=== PATIENT | female | born 1945 | race Caucasian/White ===

== ENCOUNTER 2018-05-12 19:05 | Emergency (ER) | payer OTHER ==
[~2018-05-12] VITALS: Ht 167.6 cm; Wt 94.3 kg
--- NOTE | ~2018-05-12 | EKG ---
[place], [place] ELECTROCARDIOGRAM REPORT NAME: SALIMA MURO V UNIT #: [id number] ROOM: DOCTOR: STU DRAFT REPORT BIRTHDATE: [birth year] [facility] Test Date: 2018-05-12 Test Time: 19:25:34 Pat Name: SALIMA MURO Department: Room: Gender: F Machine Technician: SS RESP : 1945 Requested By: ALIN HARO Order Number: [id number] Reading MD: Odell Ashley MD Measurements Intervals [place] Rate: 106 P: 50 [place]: 176 QRS: -52 QRSD: 92 T: 86 QT: 336 QTc: 447 Interpretive Statements Sinus tachycardia Ventricular bigeminy Left anterior fascicular block Abnormal R-wave progression, late transition LVH by voltage ST elevation, consider inferior injury Electronically Signed On 05-13-2018 11:07:11 PDT by Odell Ashley MD CM:EKGRPT:ELECTROCARDIOGRAM REPORT 24 1107 ALIN SMITH DRAFT REPORT ALIN HARO DO
[~2018-05-12 19:05] MED LIST: ACTOPLUS MET 501 TAB PO; ALBUTEROL2.5 MG/0.5 INH; AMOXICILLIN250 MG PO; AMOXICILLIN500 MG PO; CALCIUM + VITA1 EAC2 PO; CARAFATE1 GM PO; DELTASONE10 MG; DICLOFENAC POTA50 MG PO; IBUPROFEN600 MG PO; K-DUR 2020 MEQ PO; KLONOPIN1 MG PO; LEVAQUIN500 M2 PO; LEVOFLOXACIN500 MG PO; NEURONTIN300 MG PO; OMEPRAZOLE DR20 MG PO; OYSTER CALCIUM/1 TA1 PO; PEPCID20 MG PO; PERCOCET 325 MG1 TA6 PO; PHENERGAN25 M1 PO; PRAVACHOL20 MG PO; REQUIP1 MG PO; REQUIP2 M2 PO; RESTORIL30 MG PO; SYMBICORT1 AE1 INH; SYNTHROID0.025 MG PO; TORADOL10 MG PO; TUSSI-ORGANID3840 M1 PO; ULTRAM50 MG PO; VICODIN 5/500 505 MG PO; VICODIN ES 7501 TAB PO; VITAMIN D50000 I2 PO; VITAMIN D50000 I3 PO; VOLTAREN GEL1% TP; ZOCOR20 MG PO; ZOFRAN ODT8 MG PO
[2018-05-12 19:09] VITALS: BP 121/83
[2018-05-12 19:53] LABS: BASO % 0.2 % (0.0-1.0); EOS # 0.1 10*3/uL (0.0-0.4); EOS % 0.9 % (1.0-4.0); HEMATOCRIT 38.4 % (37.0-47.0); LYMPH % 12.9 % (27.0-41.0); MEAN CELL VOLUME 89.9 fl (81.0-99.0); MEAN CORPUSCULAR HGB 30.4 pg (27.0-31.0); MEAN CORPUSCULAR HGB CONC 33.9 g/dl (33.0-37.0); MEAN PLATELET VOLUME 10.4 fl (9.6-12.3); MONO % 6.5 % (3.0-9.0); NEUT % 79.2 % (47.0-73.0); PLATELET COUNT AUTOMATED 332 10*3/uL (130-400); RED BLOOD COUNT 4.27 10*6/uL (4.10-5.10); RED CELL DISTRI WIDTH 13.6 % (0-14.5); WHITE BLOOD COUNT 15.2 10*3/uL (4.8-10.8)
[2018-05-12 20:09] LABS: ALBUMIN 3.4 gm/dl (3.1-4.5); ALKALINE PHOSPHATASE 82 U/L (45-117); BUN 12 mg/dl (7-24); CHLORIDE 109 mmol/L (98-107); CREATININE 1.03 mg/dL (0.55-1.02); SGOT/AST 13 IU/L (3-35); SGPT/ALT 22 U/L (12-78); SODIUM 141 mmol/L (136-145); TOTAL PROTEIN 7.2 gm/dL (6.4-8.2)
[2018-05-12 20:11] LABS: TROPONIN I < 0.015 ng/ml (<0.045)
[2018-05-12 21:22] LABS: BILIRUBIN NEGATIVE (NEGATIVE); BLOOD TRACE-INTACT (NEGATIVE); CLARITY CLEAR (CLEAR); COLOR YELLOW (YELLOW); GLUCOSE NEGATIVE (NEGATIVE); KETONE NEGATIVE (NEGATIVE); LEUKO ESTERASE NEGATIVE (NEGATIVE); NITRITE NEGATIVE (NEGATIVE); SPECIFIC GRAVITY 1.015 (1.005-1.030); UROBILINOGEN 0.2 E.U./dl (0.2-1.0)
== END 2018-05-12 23:15 | disposition home or self-care (01) ==
LOC: ED 19:05
PROVIDERS: Student in an Organized Health Care Education/Training Program
DX: R11.2 Nausea with vomiting, unspecified (principal); R19.7 Diarrhea, unspecified; R05 Cough; R06.02 Shortness of breath; R61 Generalized hyperhidrosis; K21.9 Gastro-esophageal reflux disease without esophagitis; E78.5 Hyperlipidemia, unspecified; J44.9 Chronic obstructive pulmonary disease, unspecified; E03.9 Hypothyroidism, unspecified; E11.9 Type 2 diabetes mellitus without complications; F17.200 Nicotine dependence, unspecified, uncomplicated; Z79.899 Other long term (current) drug therapy

== ENCOUNTER → 2018-09-20 | Outpatient (CLI) | payer OTHER | END | disposition home or self-care (01) | LOC: CT 09:59 | DX: N28.89 Other specified disorders of kidney and ureter (principal); J44.9 Chronic obstructive pulmonary disease, unspecified; R91.1 Solitary pulmonary nodule ==

== ENCOUNTER → 2018-10-14 | Outpatient (CLI) | payer OTHER ==
[2018-10-14 11:21] LABS: BASO # 0.1 10*3/uL (0.0-0.1); BASO % 0.5 % (0.0-1.0); EOS # 0.2 10*3/uL (0.0-0.4); EOS % 1.7 % (1.0-4.0); HEMATOCRIT 39.1 % (37.0-47.0); HEMOGLOBIN 12.9 g/dl (12.0-16.0); LYMPH # 2.9 10*3/uL (1.3-4.4); LYMPH % 29.3 % (27.0-41.0); MEAN CELL VOLUME 92.4 fl (81.0-99.0); MEAN CORPUSCULAR HGB 30.5 pg (27.0-31.0); MONO % 9.8 % (3.0-9.0); NEUT # 5.7 10*3/uL (2.3-7.9); PLATELET COUNT AUTOMATED 317 10*3/uL (130-400); RED BLOOD COUNT 4.23 10*6/uL (4.10-5.10); RED CELL DISTRI WIDTH 14.6 % (0-14.5); WHITE BLOOD COUNT 9.9 10*3/uL (4.8-10.8)
== END | disposition home or self-care (01) ==
LOC: LAB 10:49
PROVIDERS: Internal Medicine Critical Care Medicine
DX: R91.1 Solitary pulmonary nodule (principal); Z79.899 Other long term (current) drug therapy

== ENCOUNTER → 2018-11-04 | Outpatient (CLI) | payer OTHER | END | disposition home or self-care (01) | LOC: MAMMO 02:43 | DX: Z12.31 Encounter for screening mammogram for malignant neoplasm of breast (principal) ==

== ENCOUNTER → 2019-09-20 | Outpatient (CLI) | payer OTHER ==
[2019-09-20 12:55] LABS: ALBUMIN 3.6 gm/dl (3.1-4.5); POTASSIUM 4.3 mmol/L (3.5-5.1)
[2019-09-20 13:06] LABS: CREATININE 1.14 mg/dL (0.55-1.02); TOTAL PROTEIN 7.5 gm/dL (6.4-8.2)
[2019-09-21 10:09] LABS: CREATININE,URINE 188.5 mg/dL (Not Estab.)
== END | disposition home or self-care (01) ==
LOC: LAB 11:28
PROVIDERS: Internal Medicine
DX: E11.42 Type 2 diabetes mellitus with diabetic polyneuropathy (principal); E03.8 Other specified hypothyroidism; E53.8 Deficiency of other specified B group vitamins

== ENCOUNTER 2020-01-28 22:00 | Emergency (ER) | payer OTHER ==
[~2020-01-28] VITALS: Ht 167.6 cm; Wt 92.1 kg
[2020-01-28 22:10] VITALS: BP 135/74
[2020-01-28 23:46] LABS: BASO % 0.3 % (0.0-1.0); HEMATOCRIT 37.3 % (37.0-47.0); LYMPH # 3.8 10*3/uL (1.3-4.4); LYMPH % 39.7 % (27.0-41.0); MEAN CELL VOLUME 89.9 fl (81.0-99.0); MEAN CORPUSCULAR HGB 29.2 pg (27.0-31.0); MEAN CORPUSCULAR HGB CONC 32.4 g/dl (33.0-37.0); MONO # 1.1 10*3/uL (0.1-1.0); MONO % 11.3 % (3.0-9.0); NEUT # 4.6 10*3/uL (2.3-7.9); NEUT % 48.4 % (47.0-73.0); PLATELET COUNT AUTOMATED 349 10*3/uL (130-400); RED BLOOD COUNT 4.15 10*6/uL (4.10-5.10); RED CELL DISTRI WIDTH 13.3 % (0-14.5); WHITE BLOOD COUNT 9.5 10*3/uL (4.8-10.8)
[2020-01-29] LABS: ALBUMIN 3.4 gm/dl (3.1-4.5); CREATININE 1.09 mg/dL (0.55-1.02); POTASSIUM 4.2 mmol/L (3.5-5.1); TOTAL PROTEIN 7.3 gm/dL (6.4-8.2)
== END 2020-01-29 01:59 | disposition home or self-care (01) ==
LOC: ED 22:00
PROVIDERS: Emergency Medicine
DX: I71.4 Abdominal aortic aneurysm, without rupture (principal); Z79.899 Other long term (current) drug therapy

== ENCOUNTER → 2020-02-17 | Outpatient (CLI) | payer OTHER ==
[2020-02-17 13:24] LABS: HEMATOCRIT 37.1 % (37.0-47.0); MEAN CELL VOLUME 88.1 fl (81.0-99.0); MEAN CORPUSCULAR HGB CONC 31.8 g/dl (33.0-37.0); MEAN PLATELET VOLUME 10.3 fl (9.6-12.3); RED BLOOD COUNT 4.21 10*6/uL (4.10-5.10); RED CELL DISTRI WIDTH 13.5 % (0-14.5); WHITE BLOOD COUNT 7.6 10*3/uL (4.8-10.8)
[2020-02-17 13:51] LABS: ALBUMIN 3.3 gm/dl (3.1-4.5); CREATININE 1.11 mg/dL (0.55-1.02); POTASSIUM 4.1 mmol/L (3.5-5.1); TOTAL PROTEIN 7.1 gm/dL (6.4-8.2)
[2020-02-17 13:58] LABS: THYROID STIM HORMONE (HS) 4.57 uIU/ml (0.358-4.75)
[2020-02-17 14:09] LABS: VITAMIN D, 25-HYDROXY 30.1 ng/mL (30-100)
== END | disposition home or self-care (01) ==
LOC: LAB 12:29
PROVIDERS: Family Medicine
DX: E11.9 Type 2 diabetes mellitus without complications (principal); R53.83 Other fatigue; E78.00 Pure hypercholesterolemia, unspecified

== ENCOUNTER → 2020-03-21 | Outpatient (CLI) | payer OTHER | END | disposition home or self-care (01) | LOC: MRI 14:51 | DX: Z02.9 Encounter for administrative examinations, unspecified (principal); M54.16 Radiculopathy, lumbar region; M48.062 Spinal stenosis, lumbar region with neurogenic claudication; Z79.899 Other long term (current) drug therapy ==

== ENCOUNTER 2020-03-27 15:11 | Inpatient (IN) | payer OTHER ==
[~2020-03-27] VITALS: Ht 168 cm; Wt 99.0 kg
[~2020-03-27 15:11] MED LIST changes: -REQUIP2 M2 PO; +ROPINIROLE HYDRO2 M1 PO; -VOLTAREN GEL1% TP; +VOLTAREN100 GM T
[2020-03-27 15:33] VITALS: BP 151/82
[2020-03-27 16:09] LABS: BASO % 0.2 % (0.0-1.0); LYMPH # 3.2 10*3/uL (1.3-4.4); LYMPH % 33.5 % (27.0-41.0); MEAN CELL VOLUME 87.3 fl (81.0-99.0); MEAN CORPUSCULAR HGB 26.9 pg (27.0-31.0); MEAN CORPUSCULAR HGB CONC 30.9 g/dl (33.0-37.0); MEAN PLATELET VOLUME 10.4 fl (9.6-12.3); MONO % 10.7 % (3.0-9.0); NEUT # 5.2 10*3/uL (2.3-7.9); NEUT % 54.7 % (47.0-73.0); PLATELET COUNT AUTOMATED 405 10*3/uL (130-400); RED BLOOD COUNT 4.01 10*6/uL (4.10-5.10); RED CELL DISTRI WIDTH 14.5 % (0-14.5); WHITE BLOOD COUNT 9.5 10*3/uL (4.8-10.8)
[2020-03-27 16:21] LABS: ACT PARTIAL THROMBO TIME 24.2 SECONDS (20.0-32.1); INTERNATIONAL NORM RATIO 0.9 (2.0-3.5)
[2020-03-27 16:23] LABS: ALBUMIN 3.4 gm/dl (3.1-4.5); ALKALINE PHOSPHATASE 146 U/L (45-117); BUN 14 mg/dl (7-24); CHLORIDE 105 mmol/L (98-107); CREATININE 1.17 mg/dL (0.55-1.02); LIPASE 121 U/L (73-393); POTASSIUM 4.4 mmol/L (3.5-5.1); SGOT/AST 27 IU/L (3-35); SGPT/ALT 56 U/L (12-78); SODIUM 134 mmol/L (136-145); TOTAL PROTEIN 7.3 gm/dL (6.4-8.2)
[2020-03-27 16:28] LABS: TROPONIN I < 0.015 ng/ml (<0.045)
[2020-03-27 16:41] VITALS: BP 142/82
[2020-03-27 17:22] VITALS: BP 152/66
[2020-03-27 17:34] VITALS: BP 153/66
[2020-03-27 18:32] VITALS: BP 130/80
[2020-03-27] MEDS ORDERED: NEURONTIN300 MG PO (18:38)
[2020-03-27] MEDS ORDERED: DOCUSATE SOD100 MG PO (18:40)
[2020-03-27] MEDS ORDERED: NEXIUM40 MG PO (18:43)
[2020-03-27] MEDS ORDERED: SINGULAIR10 M1 PO (18:44)
[2020-03-27] MEDS ORDERED: WELLBUTRIN SR150 MG PO (18:44)
[2020-03-27] MEDS ORDERED: LIDODERM1 EACH T (18:44)
[2020-03-27] MEDS ORDERED: METFORMIN HYD1000 MG PO (18:45)
[2020-03-27] MEDS ORDERED: GLIMEPIRIDE2 MG PO (18:45)
[2020-03-28] VITALS: BP 127/48
[2020-03-28 06:48] LABS: BASO % 0.2 % (0.0-1.0); HEMATOCRIT 33.7 % (37.0-47.0); LYMPH % 17.7 % (27.0-41.0); MEAN CELL VOLUME 86.6 fl (81.0-99.0); MEAN CORPUSCULAR HGB 27.2 pg (27.0-31.0); MEAN CORPUSCULAR HGB CONC 31.5 g/dl (33.0-37.0); MEAN PLATELET VOLUME 10.2 fl (9.6-12.3); MONO # 0.8 10*3/uL (0.1-1.0); MONO % 6.9 % (3.0-9.0); NEUT # 8.2 10*3/uL (2.3-7.9); NEUT % 73.9 % (47.0-73.0); PLATELET COUNT AUTOMATED 388 10*3/uL (130-400); RED BLOOD COUNT 3.89 10*6/uL (4.10-5.10); RED CELL DISTRI WIDTH 14.6 % (0-14.5); WHITE BLOOD COUNT 11.2 10*3/uL (4.8-10.8)
[2020-03-28 07:25] LABS: ALBUMIN 3.2 gm/dl (3.1-4.5); FREE T4 0.99 ng/dl (0.76-1.46); POTASSIUM 4.3 mmol/L (3.5-5.1)
[2020-03-28 07:33] LABS: CREATININE 1.15 mg/dL (0.55-1.02)
[2020-03-28 07:38] LABS: ACT PARTIAL THROMBO TIME 24.2 SECONDS (20.0-32.1); THYROID STIM HORMONE (HS) 0.671 uIU/ml (0.358-4.75)
[2020-03-28 08:00] VITALS: BP 135/61
[2020-03-28 08:02] LABS: VITAMIN D, 25-HYDROXY 62.1 ng/mL (30-100)
[2020-03-28 12:00] VITALS: BP 139/66
[2020-03-28 16:00] VITALS: BP 122/54
[2020-03-28 20:00] VITALS: BP 141/68
[2020-03-29 06:50] LABS: BASO % 0.2 % (0.0-1.0); HEMATOCRIT 34.4 % (37.0-47.0); LYMPH # 2.3 10*3/uL (1.3-4.4); LYMPH % 17.9 % (27.0-41.0); MEAN CELL VOLUME 87.8 fl (81.0-99.0); MEAN CORPUSCULAR HGB 27.6 pg (27.0-31.0); MEAN CORPUSCULAR HGB CONC 31.4 g/dl (33.0-37.0); MEAN PLATELET VOLUME 10.3 fl (9.6-12.3); MONO # 0.9 10*3/uL (0.1-1.0); MONO % 6.7 % (3.0-9.0); NEUT # 9.6 10*3/uL (2.3-7.9); NEUT % 74.1 % (47.0-73.0); PLATELET COUNT AUTOMATED 419 10*3/uL (130-400); RED BLOOD COUNT 3.92 10*6/uL (4.10-5.10); RED CELL DISTRI WIDTH 14.8 % (0-14.5); WHITE BLOOD COUNT 12.9 10*3/uL (4.8-10.8)
[2020-03-29 07:22] LABS: POTASSIUM 4.4 mmol/L (3.5-5.1)
[2020-03-29 07:25] LABS: CREATININE 1.21 mg/dL (0.55-1.02)
[2020-03-29 08:00] VITALS: BP 139/74
[2020-03-29 16:00] VITALS: BP 133/73
[2020-03-29 20:00] VITALS: BP 148/67
[2020-03-30] VITALS: BP 114/53
[2020-03-30 06:31] LABS: HEMATOCRIT 34.3 % (37.0-47.0); MEAN CELL VOLUME 88.2 fl (81.0-99.0); MEAN CORPUSCULAR HGB 27.5 pg (27.0-31.0); MEAN CORPUSCULAR HGB CONC 31.2 g/dl (33.0-37.0); MEAN PLATELET VOLUME 10.1 fl (9.6-12.3); PLATELET COUNT AUTOMATED 402 10*3/uL (130-400); RED BLOOD COUNT 3.89 10*6/uL (4.10-5.10); RED CELL DISTRI WIDTH 14.8 % (0-14.5); WHITE BLOOD COUNT 12.5 10*3/uL (4.8-10.8)
[2020-03-30 06:58] LABS: POTASSIUM 3.8 mmol/L (3.5-5.1)
[2020-03-30 06:59] LABS: CREATININE 1.16 mg/dL (0.55-1.02)
[2020-03-30 07:36] LABS: PLATELET SUFFICIENCY HIGH (NORMAL); TOTAL CELLS COUNTED 100 #CELLS
[2020-03-30 08:00] VITALS: BP 133/69
[2020-03-30] MEDS ORDERED: PREDNISONE10 MG PO (11:11)
[2020-03-30] MEDS ORDERED: DOXYCYCLINE100 M3 PO (11:11)
[2020-03-30] MEDS ORDERED: MUCUS RELIEF600 MG PO (11:11)
== END 2020-03-30 12:00 | disposition home or self-care (01) | DRG 190 ==
LOC: ED 15:11 → 5E 17:29 → EDHOLD 17:29 → 5E 18:17
PROVIDERS: Emergency Medicine; Hospitalist; Internal Medicine; ADMIT Family Medicine
DX: J44.0 Chronic obstructive pulmonary disease with (acute) lower respiratory infection (principal); N17.0 Acute kidney failure with tubular necrosis; R65.10 Systemic inflammatory response syndrome (SIRS) of non-infectious origin without acute organ dysfunction; E87.1 Hypo-osmolality and hyponatremia; J45.51 Severe persistent asthma with (acute) exacerbation; Z68.35 Body mass index [BMI] 35.0-35.9, adult; J44.1 Chronic obstructive pulmonary disease with (acute) exacerbation; D64.9 Anemia, unspecified; E11.65 Type 2 diabetes mellitus with hyperglycemia; R79.82 Elevated C-reactive protein (CRP); R74.8 Abnormal levels of other serum enzymes; E03.9 Hypothyroidism, unspecified; E86.0 Dehydration; F17.210 Nicotine dependence, cigarettes, uncomplicated; E11.22 Type 2 diabetes mellitus with diabetic chronic kidney disease; N18.3 Chronic kidney disease, stage 3 (moderate); D47.3 Essential (hemorrhagic) thrombocythemia; K21.9 Gastro-esophageal reflux disease without esophagitis; E78.5 Hyperlipidemia, unspecified; J20.9 Acute bronchitis, unspecified; M19.90 Unspecified osteoarthritis, unspecified site; E66.9 Obesity, unspecified; F41.1 Generalized anxiety disorder; G25.81 Restless legs syndrome; F32.9 Major depressive disorder, single episode, unspecified; I71.4 Abdominal aortic aneurysm, without rupture; D21.9 Benign neoplasm of connective and other soft tissue, unspecified; Z90.49 Acquired absence of other specified parts of digestive tract; Z90.710 Acquired absence of both cervix and uterus; Z82.49 Family history of ischemic heart disease and other diseases of the circulatory system; Z83.3 Family history of diabetes mellitus; Z83.2 Family history of diseases of the blood and blood-forming organs and certain disorders involving the immune mechanism; Z82.0 Family history of epilepsy and other diseases of the nervous system; Z80.51 Family history of malignant neoplasm of kidney; Z80.1 Family history of malignant neoplasm of trachea, bronchus and lung; Z79.899 Other long term (current) drug therapy; Z71.6 Tobacco abuse counseling

== ENCOUNTER 2020-05-07 12:11 | Emergency (ER) | payer OTHER ==
[~2020-05-07] VITALS: Wt 92.1 kg
[~2020-05-07 12:11] MED LIST changes: +DOCUSATE SOD100 MG PO; +DOXYCYCLINE100 M3 PO; +GLIMEPIRIDE2 MG PO; +LIDODERM1 EACH T; +METFORMIN HYD1000 MG PO; +MUCUS RELIEF600 MG PO; +NEXIUM40 MG PO; +PREDNISONE10 MG PO; +SINGULAIR10 M1 PO; +WELLBUTRIN SR150 MG PO
[2020-05-07 13:12] LABS: BASO % 0.2 % (0.0-1.0); HEMATOCRIT 34.7 % (37.0-47.0); LYMPH # 2.6 10*3/uL (1.3-4.4); LYMPH % 25.5 % (27.0-41.0); MEAN CELL VOLUME 85.5 fl (81.0-99.0); MEAN CORPUSCULAR HGB 26.8 pg (27.0-31.0); MEAN CORPUSCULAR HGB CONC 31.4 g/dl (33.0-37.0); MEAN PLATELET VOLUME 9.8 fl (9.6-12.3); MONO # 0.9 10*3/uL (0.1-1.0); MONO % 8.9 % (3.0-9.0); NEUT # 6.7 10*3/uL (2.3-7.9); NEUT % 65.1 % (47.0-73.0); PLATELET COUNT AUTOMATED 427 10*3/uL (130-400); RED BLOOD COUNT 4.06 10*6/uL (4.10-5.10); RED CELL DISTRI WIDTH 15.1 % (0-14.5); WHITE BLOOD COUNT 10.3 10*3/uL (4.8-10.8)
[2020-05-07 13:24] LABS: ACT PARTIAL THROMBO TIME 25.4 SECONDS (20.0-32.1)
[2020-05-07 13:28] LABS: ALBUMIN 3.8 gm/dl (3.1-4.5); ALKALINE PHOSPHATASE 93 U/L (45-117); BUN 8 mg/dl (7-24); CHLORIDE 108 mmol/L (98-107); CREATININE 1.09 mg/dL (0.55-1.02); LIPASE 56 U/L (73-393); POTASSIUM 3.8 mmol/L (3.5-5.1); SGOT/AST 27 IU/L (3-35); SGPT/ALT 43 U/L (12-78); SODIUM 139 mmol/L (136-145); TROPONIN I < 0.015 ng/ml (<0.045)
[2020-05-07 23:06] VITALS: BP 128/71
--- NOTE | 2020-05-09 15:35 | NUR ---
MANUFACTURING QUALITY TECHNICIAN RECEIVED CALL FROM [employer]IL SUPERVISOR [employer]ING, INQUIRING ABOUT NOT BEING ABLE TO REACH THIS PATIENT. MANUFACTURING QUALITY TECHNICIAN RETURN CALL TO [phone] AND INFORMED HER THIS PATIENT WAS TRANSFERRED TO [facility]
== END 2020-05-07 23:42 | disposition short-term general hospital (02) ==
LOC: ED 12:11
PROVIDERS: Emergency Medicine
DX: S34.3XXA Injury of cauda equina, initial encounter (principal); Z79.899 Other long term (current) drug therapy; X58.XXXA Exposure to other specified factors, initial encounter; Y93.89 Activity, other specified; Y92.89 Other specified places as the place of occurrence of the external cause; Y99.8 Other external cause status

== ENCOUNTER → 2020-07-03 | Outpatient (CLI) | payer OTHER ==
[2020-07-03 15:43] LABS: BASO % 0.1 % (0.0-1.0); EOS % 0.1 % (1.0-4.0); HEMATOCRIT 30.7 % (37.0-47.0); LYMPH # 2.5 10*3/uL (1.3-4.4); LYMPH % 35.6 % (27.0-41.0); MEAN CELL VOLUME 83.4 fl (81.0-99.0); MEAN CORPUSCULAR HGB 25.3 pg (27.0-31.0); MEAN CORPUSCULAR HGB CONC 30.3 g/dl (33.0-37.0); MEAN PLATELET VOLUME 9.8 fl (9.6-12.3); MONO # 0.9 10*3/uL (0.1-1.0); MONO % 12.5 % (3.0-9.0); NEUT # 3.5 10*3/uL (2.3-7.9); NEUT % 51.3 % (47.0-73.0); PLATELET COUNT AUTOMATED 460 10*3/uL (130-400); RED BLOOD COUNT 3.68 10*6/uL (4.10-5.10); RED CELL DISTRI WIDTH 15.7 % (0-14.5); WHITE BLOOD COUNT 6.9 10*3/uL (4.8-10.8)
[2020-07-03 16:12] LABS: ALBUMIN 3.7 gm/dl (3.1-4.5); CREATININE 1.17 mg/dL (0.55-1.02); FREE T4 1.03 ng/dl (0.76-1.46); POTASSIUM 4.1 mmol/L (3.5-5.1); TOTAL PROTEIN 7.6 gm/dL (6.4-8.2)
[2020-07-03 16:17] LABS: THYROID STIM HORMONE (HS) 2.06 uIU/ml (0.358-4.75)
[2020-07-03 16:19] LABS: VITAMIN D, 25-HYDROXY 55.4 ng/mL (30-100)
== END | disposition home or self-care (01) ==
LOC: LAB 14:54
PROVIDERS: ATTEND Internal Medicine
DX: Z00.00 Encounter for general adult medical examination without abnormal findings (principal); G25.81 Restless legs syndrome; R79.0 Abnormal level of blood mineral; E78.2 Mixed hyperlipidemia; E11.9 Type 2 diabetes mellitus without complications; E03.9 Hypothyroidism, unspecified; I10 Essential (primary) hypertension; E55.9 Vitamin D deficiency, unspecified

== ENCOUNTER → 2020-07-27 | Outpatient (CLI) | payer OTHER | END | disposition home or self-care (01) | LOC: COVID19 11:05 | PROVIDERS: ATTEND Internal Medicine | DX: R51.9 Headache, unspecified (principal); Z20.828 Contact with and (suspected) exposure to other viral communicable diseases ==

== ENCOUNTER → 2021-06-21 | Outpatient (CLI) | payer OTHER | END | disposition home or self-care (01) | LOC: CT 14:17 | PROVIDERS: ATTEND Internal Medicine | DX: J43.9 Emphysema, unspecified (principal); I25.10 Atherosclerotic heart disease of native coronary artery without angina pectoris; R91.8 Other nonspecific abnormal finding of lung field ==

== ENCOUNTER 2021-11-22 20:10 | Emergency (ER) | payer OTHER ==
[~2021-11-22] VITALS: Ht 167.6 cm; Wt 91.2 kg
[2021-11-22 21:24] LABS: BASO # 0.1 10*3/uL (0.0-0.1); BASO % 0.6 % (0.0-1.0); EOS # 0.1 10*3/uL (0.0-0.4); EOS % 0.8 % (1.0-4.0); HEMATOCRIT 42.2 % (37.0-47.0); LYMPH # 3.7 10*3/uL (1.3-4.4); LYMPH % 32.2 % (27.0-41.0); MEAN CELL VOLUME 91.7 fl (81.0-99.0); MEAN CORPUSCULAR HGB 30.4 pg (27.0-31.0); MEAN CORPUSCULAR HGB CONC 33.2 g/dl (33.0-37.0); MEAN PLATELET VOLUME 9.9 fl (9.6-12.3); MONO # 1.2 10*3/uL (0.1-1.0); MONO % 10.1 % (3.0-9.0); NEUT # 6.5 10*3/uL (2.3-7.9); PLATELET COUNT AUTOMATED 376 10*3/uL (130-400); RED CELL DISTRI WIDTH 12.5 % (0-14.5); WHITE BLOOD COUNT 11.6 10*3/uL (4.8-10.8)
[2021-11-22 21:35] LABS: ACT PARTIAL THROMBO TIME 27.7 SECONDS (20.0-32.1)
[2021-11-22 21:41] LABS: CREATININE 1.19 mg/dL (0.55-1.02); POTASSIUM 3.5 mmol/L (3.5-5.1)
[2021-11-22 23:19] VITALS: BP 144/91
== END 2021-11-23 01:04 | disposition left against medical advice (07) ==
LOC: ED 20:10
PROVIDERS: Nurse Practitioner Family
DX: N17.9 Acute kidney failure, unspecified (principal); Z20.822 Contact with and (suspected) exposure to COVID-19; Z79.899 Other long term (current) drug therapy; Z90.49 Acquired absence of other specified parts of digestive tract; Z90.710 Acquired absence of both cervix and uterus; Z90.89 Acquired absence of other organs; Z98.890 Other specified postprocedural states; F17.200 Nicotine dependence, unspecified, uncomplicated

== ENCOUNTER 2022-04-19 17:08 | Emergency (ER) | payer OTHER ==
[~2022-04-19 17:08] MED LIST changes: +AMIODARONE HYD200 MG PO; +AUGMENTIN 875-875 MG PO; +BUPROPION HYDR150 M3 PO; +KLONOPIN1 M1 PO; -KLONOPIN1 MG PO; +Lopressor25 MG PO; +ROPINIROLE HYDRO3 MG PO; +TRAZODONE50 MG PO
[2022-04-19 17:16] VITALS: BP 172/90
== END 2022-04-19 22:00 | disposition left against medical advice (07) ==
LOC: ED 17:08
DX: R51.9 Headache, unspecified (principal); Z53.21 Procedure and treatment not carried out due to patient leaving prior to being seen by health care provider

== ENCOUNTER 2022-04-21 14:11 | Emergency (ER) | payer OTHER ==
[~2022-04-21] VITALS: Ht 170.1 cm; Wt 77.1 kg
[~2022-04-21 14:11] MED LIST changes: -HYDROCODONE-AC1 EAC1 PO; -MEDROL DOSEPAK4 MG PO
[2022-04-21 15:49] VITALS: BP 153/74
[2022-04-21] MEDS ORDERED: MEDROL DOSEPAK4 MG PO (18:12)
[2022-04-21] MEDS ORDERED: HYDROCODONE-AC1 EAC1 PO (18:12)
== END 2022-04-21 18:26 | disposition home or self-care (01) ==
LOC: ED 14:11
DX: M54.2 Cervicalgia (principal); R51.9 Headache, unspecified; H53.8 Other visual disturbances; Z79.899 Other long term (current) drug therapy; Z90.89 Acquired absence of other organs; Z90.710 Acquired absence of both cervix and uterus; Z98.890 Other specified postprocedural states; F17.200 Nicotine dependence, unspecified, uncomplicated

== ENCOUNTER → 2022-04-21 | Outpatient (CLI) | payer OTHER ==
[~2022-04-21] MED LIST changes: +HYDROCODONE-AC1 EAC1 PO; +MEDROL DOSEPAK4 MG PO
== END | disposition home or self-care (01) ==
LOC: RAD 10:30
PROVIDERS: ATTEND Internal Medicine
DX: M81.0 Age-related osteoporosis without current pathological fracture (principal); M85.851 Other specified disorders of bone density and structure, right thigh; Z78.0 Asymptomatic menopausal state

== ENCOUNTER 2022-05-06 09:43 | Emergency (ER) | payer OTHER ==
[~2022-05-06] VITALS: Ht 167.6 cm; Wt 91.2 kg
[~2022-05-06 09:43] MED LIST changes: +HYDROCODONE-AC1 EAC1 PO; +MEDROL DOSEPAK4 MG PO
[2022-05-06 10:17] LABS: BASO # 0.1 10*3/uL (0.0-0.1); BASO % 0.6 % (0.0-1.0); EOS # 0.2 10*3/uL (0.0-0.4); EOS % 1.8 % (1.0-4.0); HEMATOCRIT 34.7 % (37.0-47.0); LYMPH # 2.5 10*3/uL (1.3-4.4); LYMPH % 25.1 % (27.0-41.0); MEAN CELL VOLUME 88.3 fl (81.0-99.0); MEAN CORPUSCULAR HGB CONC 32.9 g/dl (33.0-37.0); MEAN PLATELET VOLUME 9.7 fl (9.6-12.3); MONO # 0.8 10*3/uL (0.1-1.0); NEUT # 6.3 10*3/uL (2.3-7.9); NEUT % 64.2 % (47.0-73.0); PLATELET COUNT AUTOMATED 369 10*3/uL (130-400); RED BLOOD COUNT 3.93 10*6/uL (4.10-5.10); RED CELL DISTRI WIDTH 13.3 % (0-14.5); WHITE BLOOD COUNT 9.8 10*3/uL (4.8-10.8)
[2022-05-06 10:30] LABS: ACT PARTIAL THROMBO TIME 26.4 SECONDS (20.0-32.1)
[2022-05-06 10:32] LABS: ALKALINE PHOSPHATASE 105 U/L (45-117); BUN 11 mg/dl (7-24); CHLORIDE 108 mmol/L (98-107); CREATININE 0.92 mg/dL (0.55-1.02); POTASSIUM 3.8 mmol/L (3.5-5.1); SGOT/AST 19 IU/L (3-35); SGPT/ALT 32 U/L (12-78); SODIUM 137 mmol/L (136-145); TOTAL PROTEIN 6.9 gm/dL (6.4-8.2)
[2022-05-06 10:49] VITALS: BP 131/65
== END 2022-05-06 12:15 | disposition home or self-care (01) ==
LOC: ED 09:43
PROVIDERS: Emergency Medicine
DX: R06.02 Shortness of breath (principal); J44.9 Chronic obstructive pulmonary disease, unspecified; E44.0 Moderate protein-calorie malnutrition; Z85.118 Personal history of other malignant neoplasm of bronchus and lung; Z79.2 Long term (current) use of antibiotics; Z79.899 Other long term (current) drug therapy

== ENCOUNTER 2022-05-17 19:51 | Emergency (ER) | payer OTHER ==
[~2022-05-17] VITALS: Ht 167.6 cm; Wt 77.1 kg
[2022-05-17 20:05] VITALS: BP 168/73
[2022-05-17 21:10] LABS: BASO # 0.1 10*3/uL (0.0-0.1); BASO % 0.6 % (0.0-1.0); EOS # 0.2 10*3/uL (0.0-0.4); HEMATOCRIT 33.4 % (37.0-47.0); LYMPH # 3.7 10*3/uL (1.3-4.4); LYMPH % 34.3 % (27.0-41.0); MEAN CELL VOLUME 87.4 fl (81.0-99.0); MEAN CORPUSCULAR HGB 28.5 pg (27.0-31.0); MEAN CORPUSCULAR HGB CONC 32.6 g/dl (33.0-37.0); MEAN PLATELET VOLUME 9.9 fl (9.6-12.3); MONO # 1.1 10*3/uL (0.1-1.0); MONO % 9.7 % (3.0-9.0); NEUT # 5.8 10*3/uL (2.3-7.9); NEUT % 53.1 % (47.0-73.0); PLATELET COUNT AUTOMATED 424 10*3/uL (130-400); RED BLOOD COUNT 3.82 10*6/uL (4.10-5.10); RED CELL DISTRI WIDTH 13.4 % (0-14.5); WHITE BLOOD COUNT 10.9 10*3/uL (4.8-10.8)
[2022-05-17 21:21] LABS: ACT PARTIAL THROMBO TIME 26.2 SECONDS (20.0-32.1)
[2022-05-17 21:26] LABS: ALKALINE PHOSPHATASE 104 U/L (45-117); BUN 14 mg/dl (7-24); CHLORIDE 108 mmol/L (98-107); POTASSIUM 3.4 mmol/L (3.5-5.1); SGOT/AST 14 IU/L (3-35); SGPT/ALT 31 U/L (12-78); SODIUM 139 mmol/L (136-145); TOTAL PROTEIN 6.6 gm/dL (6.4-8.2)
== END 2022-05-17 22:56 | disposition left against medical advice (07) ==
LOC: ED 19:51
PROVIDERS: Family Medicine
DX: R04.2 Hemoptysis (principal); R51.9 Headache, unspecified; C34.90 Malignant neoplasm of unspecified part of unspecified bronchus or lung; K21.9 Gastro-esophageal reflux disease without esophagitis; I25.2 Old myocardial infarction; E78.00 Pure hypercholesterolemia, unspecified; J44.9 Chronic obstructive pulmonary disease, unspecified; Z79.899 Other long term (current) drug therapy; Z90.49 Acquired absence of other specified parts of digestive tract; Z90.710 Acquired absence of both cervix and uterus; Z87.891 Personal history of nicotine dependence

== ENCOUNTER 2022-06-03 19:20 | Observation (INO) | payer OTHER ==
[~2022-06-03] VITALS: Ht 167.6 cm; Wt 90.0 kg
[~2022-06-03 19:20] MED LIST changes: +ADVIL200 MG PO; +BUDESONIDE-FO10.2 G1 INH; +CIPRO500 MG PO; +FAMOTIDINE20 M1 PO; +LEVOTHYROXINE50 MCG PO; +NATURE'S BLEND500 M6 PO; +PREDNISONE5 MG PO; +PROAIR HFA8.5 GM INH; +REQUIP2 MG PO; -ROPINIROLE HYDRO2 M1 PO
[2022-06-03 20:03] VITALS: BP 145/84
[2022-06-03 20:51] LABS: BASO % 0.3 % (0.0-1.0); EOS # 0.2 10*3/uL (0.0-0.4); EOS % 1.2 % (1.0-4.0); HEMATOCRIT 34.6 % (37.0-47.0); LYMPH # 3.9 10*3/uL (1.3-4.4); MEAN CELL VOLUME 85.9 fl (81.0-99.0); MEAN CORPUSCULAR HGB 28.3 pg (27.0-31.0); MEAN CORPUSCULAR HGB CONC 32.9 g/dl (33.0-37.0); MEAN PLATELET VOLUME 9.5 fl (9.6-12.3); MONO # 1.2 10*3/uL (0.1-1.0); MONO % 9.4 % (3.0-9.0); NEUT # 6.9 10*3/uL (2.3-7.9); NEUT % 56.6 % (47.0-73.0); PLATELET COUNT AUTOMATED 416 10*3/uL (130-400); RED BLOOD COUNT 4.03 10*6/uL (4.10-5.10); WHITE BLOOD COUNT 12.2 10*3/uL (4.8-10.8)
[2022-06-03 21:04] LABS: ACT PARTIAL THROMBO TIME 24.3 SECONDS (20.0-32.1)
[2022-06-03 21:11] LABS: ALKALINE PHOSPHATASE 100 U/L (45-117); BUN 10 mg/dl (7-24); CHLORIDE 107 mmol/L (98-107); CREATININE 0.86 mg/dL (0.55-1.02); LIPASE 103 U/L (73-393); POTASSIUM 2.8 mmol/L (3.5-5.1); SGOT/AST 18 IU/L (3-35); SGPT/ALT 43 U/L (12-78); SODIUM 139 mmol/L (136-145); TOTAL PROTEIN 7.2 gm/dL (6.4-8.2)
[2022-06-03 21:22] VITALS: BP 131/76
[2022-06-03 21:27] LABS: BILIRUBIN Negative (Negative); BLOOD Negative (Negative); CLARITY Clear (Clear); COLOR Yellow (Yellow); GLUCOSE 2+ (Negative); KETONE Trace (Negative); LEUKO ESTERASE Negative (Negative); NITRITE Negative (Negative); SPECIFIC GRAVITY 1.025 (1.001-1.030)
[2022-06-03 21:42] LABS: BACTERIA TRACE; RBC 0-2 rbc/hpf (0-2); WBC 0-2 wbc/hpf (0-5)
[2022-06-03 23:06] VITALS: BP 146/68
[2022-06-04 02:55] VITALS: BP 132/64
[2022-06-04 04:00] VITALS: BP 93/42
[2022-06-04 07:39] LABS: BASO # 0.1 10*3/uL (0.0-0.1); BASO % 0.5 % (0.0-1.0); EOS # 0.2 10*3/uL (0.0-0.4); EOS % 2.3 % (1.0-4.0); HEMATOCRIT 32.2 % (37.0-47.0); LYMPH # 3.9 10*3/uL (1.3-4.4); LYMPH % 42.8 % (27.0-41.0); MEAN CELL VOLUME 87.7 fl (81.0-99.0); MEAN CORPUSCULAR HGB 28.1 pg (27.0-31.0); MEAN PLATELET VOLUME 9.8 fl (9.6-12.3); MONO % 10.9 % (3.0-9.0); NEUT # 3.9 10*3/uL (2.3-7.9); NEUT % 42.8 % (47.0-73.0); PLATELET COUNT AUTOMATED 380 10*3/uL (130-400); RED BLOOD COUNT 3.67 10*6/uL (4.10-5.10); RED CELL DISTRI WIDTH 14.3 % (0-14.5); WHITE BLOOD COUNT 9.2 10*3/uL (4.8-10.8)
[2022-06-04 07:55] LABS: ALKALINE PHOSPHATASE 84 U/L (45-117); BUN 11 mg/dl (7-24); CHLORIDE 111 mmol/L (98-107); CREATININE 0.87 mg/dL (0.55-1.02); SGOT/AST 17 IU/L (3-35); SGPT/ALT 37 U/L (12-78); SODIUM 142 mmol/L (136-145)
[2022-06-04 07:56] LABS: POTASSIUM 3.8 mmol/L (3.5-5.1)
[2022-06-04 07:58] LABS: BUN 11 mg/dl (7-24); CHLORIDE 112 mmol/L (98-107); CREATININE 0.88 mg/dL (0.55-1.02); POTASSIUM 3.8 mmol/L (3.5-5.1); SODIUM 144 mmol/L (136-145)
[2022-06-04 08:00] VITALS: BP 131/50
[2022-06-04] MEDS ORDERED: ROPINIROLE HYDRO3 MG PO ×3 (09:37→12:04)
[2022-06-04 12:00] VITALS: BP 113/63
[2022-06-04 16:00] VITALS: BP 120/80
[2022-06-04 20:00] VITALS: BP 124/65
[2022-06-05 06:56] LABS: BUN 13 mg/dl (7-24); CHLORIDE 113 mmol/L (98-107); CREATININE 0.87 mg/dL (0.55-1.02); POTASSIUM 4.1 mmol/L (3.5-5.1); SODIUM 142 mmol/L (136-145)
[2022-06-05 08:00] VITALS: BP 142/64
[2022-06-05 12:00] VITALS: BP 146/69
[2022-06-05 16:00] VITALS: BP 146/72
[2022-06-05 20:00] VITALS: BP 151/64
[2022-06-06] VITALS: BP 147/62
[2022-06-06 07:23] LABS: BUN 7 mg/dl (7-24); CHLORIDE 113 mmol/L (98-107); CREATININE 0.78 mg/dL (0.55-1.02); POTASSIUM 3.7 mmol/L (3.5-5.1); SODIUM 142 mmol/L (136-145)
[2022-06-06 08:00] VITALS: BP 161/84
== END 2022-06-06 11:56 | disposition home or self-care (01) ==
LOC: ED 19:20 → 4E 06-04 00:48 → EDHOLD 06-04 00:48 → ICCU 06-04 02:22 → 4E 06-04 14:20
PROVIDERS: Emergency Medicine; Internal Medicine; ADMIT Internal Medicine; ATTEND Internal Medicine
DX: G43.019 Migraine without aura, intractable, without status migrainosus (principal); R11.2 Nausea with vomiting, unspecified; R79.89 Other specified abnormal findings of blood chemistry; Z20.822 Contact with and (suspected) exposure to COVID-19; E87.6 Hypokalemia; E03.9 Hypothyroidism, unspecified; F51.04 Psychophysiologic insomnia; F41.1 Generalized anxiety disorder; G25.81 Restless legs syndrome; J43.2 Centrilobular emphysema; Z79.899 Other long term (current) drug therapy; Z90.49 Acquired absence of other specified parts of digestive tract; Z90.710 Acquired absence of both cervix and uterus; Z98.890 Other specified postprocedural states

== ENCOUNTER 2022-06-11 23:59 | Emergency (ER) | payer OTHER ==
[2022-06-12 00:02] VITALS: BP 130/100
== END 2022-06-12 01:55 | disposition home or self-care (01) ==
LOC: ED 23:59
DX: C34.90 Malignant neoplasm of unspecified part of unspecified bronchus or lung (principal); R06.00 Dyspnea, unspecified; F41.9 Anxiety disorder, unspecified; Z79.899 Other long term (current) drug therapy; Z90.49 Acquired absence of other specified parts of digestive tract; Z90.710 Acquired absence of both cervix and uterus; Z90.89 Acquired absence of other organs; Z87.891 Personal history of nicotine dependence

== ENCOUNTER 2022-06-25 17:17 | Emergency (ER) | payer OTHER ==
[~2022-06-25] VITALS: Wt 93.9 kg
[2022-06-25 18:29] LABS: BASO # 0.1 10*3/uL (0.0-0.1); BASO % 0.6 % (0.0-1.0); EOS # 0.1 10*3/uL (0.0-0.4); EOS % 1.2 % (1.0-4.0); HEMATOCRIT 34.1 % (37.0-47.0); LYMPH # 3.5 10*3/uL (1.3-4.4); LYMPH % 34.6 % (27.0-41.0); MEAN CELL VOLUME 85.7 fl (81.0-99.0); MEAN CORPUSCULAR HGB 27.9 pg (27.0-31.0); MEAN CORPUSCULAR HGB CONC 32.6 g/dl (33.0-37.0); MEAN PLATELET VOLUME 9.4 fl (9.6-12.3); MONO # 0.9 10*3/uL (0.1-1.0); MONO % 8.8 % (3.0-9.0); NEUT # 5.5 10*3/uL (2.3-7.9); NEUT % 54.6 % (47.0-73.0); PLATELET COUNT AUTOMATED 413 10*3/uL (130-400); RED BLOOD COUNT 3.98 10*6/uL (4.10-5.10); RED CELL DISTRI WIDTH 14.5 % (0-14.5); WHITE BLOOD COUNT 10.1 10*3/uL (4.8-10.8)
[2022-06-25 18:44] LABS: ALKALINE PHOSPHATASE 90 U/L (45-117); BUN 10 mg/dl (7-24); CHLORIDE 109 mmol/L (98-107); CREATININE 0.93 mg/dL (0.55-1.02); POTASSIUM 3.7 mmol/L (3.5-5.1); SGOT/AST 12 IU/L (3-35); SGPT/ALT 25 U/L (12-78); SODIUM 143 mmol/L (136-145)
[2022-06-25 19:49] VITALS: BP 144/72
[2022-06-26] MEDS ORDERED: HYDROCODONE-AC1 EAC1 PO (23:56)
== END 2022-06-25 22:21 | disposition home or self-care (01) ==
LOC: ED 17:17
PROVIDERS: Physician Assistant
DX: R51.9 Headache, unspecified (principal); J44.9 Chronic obstructive pulmonary disease, unspecified; F17.200 Nicotine dependence, unspecified, uncomplicated; Z79.899 Other long term (current) drug therapy; Z90.49 Acquired absence of other specified parts of digestive tract; Z90.710 Acquired absence of both cervix and uterus; Z98.890 Other specified postprocedural states; Z90.89 Acquired absence of other organs

== ENCOUNTER 2022-06-26 22:08 | Emergency (ER) | payer OTHER ==
[2022-06-26] MEDS ORDERED: HYDROCODONE-AC1 EAC1 PO (23:56)
[2022-06-27] MEDS ORDERED: HYDROCODONE-AC1 EAC1 PO (00:05)
[2022-06-27 00:36] VITALS: BP 157/76
== END 2022-06-27 00:51 | disposition home or self-care (01) ==
LOC: ED 22:08
DX: G44.89 Other headache syndrome (principal); Z87.891 Personal history of nicotine dependence; Z90.89 Acquired absence of other organs; Z90.49 Acquired absence of other specified parts of digestive tract; Z90.710 Acquired absence of both cervix and uterus; Z79.899 Other long term (current) drug therapy

== ENCOUNTER 2022-07-02 18:57 | Emergency (ER) | payer OTHER ==
[~2022-07-02] VITALS: Ht 167.6 cm; Wt 93.9 kg
[2022-07-02 19:19] VITALS: BP 148/76
[2022-07-02] MEDS ORDERED: RELAFEN500 M1 PO (21:04)
[2022-07-02] MEDS ORDERED: PREDNISONE20 M1 PO (21:04)
[2022-07-02] MEDS ORDERED: GABAPENTIN400 MG PO (21:04)
[2022-07-02] MEDS ORDERED: CYCLOBENZAPRINE10 MG PO (21:04)
[2022-07-02] MEDS ORDERED: LIDODERM1 EACH T (21:04)
== END 2022-07-02 21:08 | disposition home or self-care (01) ==
LOC: ED 18:57
DX: M54.12 Radiculopathy, cervical region (principal); J44.9 Chronic obstructive pulmonary disease, unspecified; F17.200 Nicotine dependence, unspecified, uncomplicated; Z90.49 Acquired absence of other specified parts of digestive tract; Z90.710 Acquired absence of both cervix and uterus; Z79.899 Other long term (current) drug therapy; Z90.89 Acquired absence of other organs

== ENCOUNTER 2022-08-04 21:43 | Emergency (ER) | payer OTHER ==
[~2022-08-04] VITALS: Ht 172.7 cm; Wt 77.1 kg
[~2022-08-04 21:43] MED LIST changes: +CYCLOBENZAPRINE10 MG PO; +GABAPENTIN400 MG PO; +PREDNISONE20 M1 PO; +RELAFEN500 M1 PO
[2022-08-04 23:09] VITALS: BP 143/52
== END 2022-08-05 00:06 | disposition left against medical advice (07) ==
LOC: ED 21:43
DX: Z53.21 Procedure and treatment not carried out due to patient leaving prior to being seen by health care provider (principal)

== ENCOUNTER 2022-09-04 00:59 | Emergency (ER) | payer OTHER ==
[~2022-09-04] VITALS: Ht 172.7 cm; Wt 77.1 kg
[2022-09-04 03:13] VITALS: BP 135/72
[2022-09-04] MEDS ORDERED: [UNRECOGNIZED DRUG - OTHER] PO (07:25)
== END 2022-09-04 08:07 | disposition home or self-care (01) ==
LOC: ED 00:59
DX: G89.29 Other chronic pain (principal); R05.9 Cough, unspecified; J44.9 Chronic obstructive pulmonary disease, unspecified; Z90.49 Acquired absence of other specified parts of digestive tract; Z90.710 Acquired absence of both cervix and uterus; Z90.89 Acquired absence of other organs; Z98.890 Other specified postprocedural states; F17.200 Nicotine dependence, unspecified, uncomplicated; Z79.899 Other long term (current) drug therapy

== ENCOUNTER 2022-09-04 12:44 | Emergency (ER) | payer OTHER ==
[~2022-09-04] VITALS: Ht 167.6 cm; Wt 95.3 kg
[~2022-09-04 12:44] MED LIST changes: +[UNRECOGNIZED DRUG - OTHER] PO
[2022-09-04 13:39] VITALS: BP 159/69
== END 2022-09-04 15:39 | disposition home or self-care (01) ==
LOC: ED 12:44
DX: G89.29 Other chronic pain (principal); C34.90 Malignant neoplasm of unspecified part of unspecified bronchus or lung; F17.200 Nicotine dependence, unspecified, uncomplicated; Z79.899 Other long term (current) drug therapy; Z90.89 Acquired absence of other organs; Z90.49 Acquired absence of other specified parts of digestive tract; Z98.890 Other specified postprocedural states; Z90.710 Acquired absence of both cervix and uterus

== ENCOUNTER 2023-09-07 18:24 | Emergency (ER) | payer OTHER ==
[~2023-09-07] VITALS: Ht 167.6 cm; Wt 59.0 kg
[~2023-09-07 18:24] MED LIST changes: +BUMETANIDE2 MG PO; +Duragesic 50 M50 MCG TD; +OXYCODONE HCL10 M1 PO; +POTASSIUM CHLO20 ME4 PO; +ROPINIROLE HYDRO4 MG PO; +TRAZODONE100 MG PO; +VIBRAMYCIN100 MG PO
[2023-09-07 19:02] VITALS: BP 131/47
[2023-09-07 20:18] LABS: BASO # 0.1 10*3/uL (0.0-0.1); BASO % 0.4 % (0.0-1.0); EOS % 0.3 % (1.0-4.0); HEMATOCRIT 35.9 % (37.0-47.0); LYMPH % 24.1 % (27.0-41.0); MEAN CELL VOLUME 78.7 fl (81.0-99.0); MEAN CORPUSCULAR HGB 23.5 pg (27.0-31.0); MEAN CORPUSCULAR HGB CONC 29.8 g/dl (33.0-37.0); MEAN PLATELET VOLUME 9.4 fl (9.6-12.3); MONO # 0.9 10*3/uL (0.1-1.0); MONO % 7.4 % (3.0-9.0); NEUT # 8.2 10*3/uL (2.3-7.9); NEUT % 67.4 % (47.0-73.0); PLATELET COUNT AUTOMATED 445 10*3/uL (130-400); RED BLOOD COUNT 4.56 10*6/uL (4.10-5.10); RED CELL DISTRI WIDTH 16.2 % (0-14.5); WHITE BLOOD COUNT 12.2 10*3/uL (4.8-10.8)
[2023-09-07 20:34] LABS: ACT PARTIAL THROMBO TIME 25.6 SECONDS (20.0-32.1)
[2023-09-07 20:40] LABS: ALKALINE PHOSPHATASE 104 U/L (46-116); BUN 14 mg/dl (9-23); CHLORIDE 104 mmol/L (98-107); LIPASE 26 U/L (12-53); POTASSIUM 4.9 mmol/L (3.4-5.1); SGPT/ALT 15 U/L (5-49); TOTAL PROTEIN 8.2 gm/dL (6.0-8.0)
[2023-09-07 20:53] LABS: BILIRUBIN Negative (Negative); BLOOD Negative (Negative); CLARITY Clear (Clear); COLOR Yellow (Yellow); GLUCOSE Negative (Negative); KETONE Negative (Negative); LEUKO ESTERASE Trace (Negative); NITRITE Negative (Negative); SPECIFIC GRAVITY 1.015 (1.001-1.030); UROBILINOGEN 0.2 E.U./dl (0.0-1.0)
[2023-09-07 21:26] LABS: BACTERIA 1+; MUCOUS 1+
[2023-09-07] MEDS ORDERED: SEPTDS PO (21:41)
[2023-09-07] MEDS ORDERED: HYDROCODONE-AC1 EAC1 PO (21:41)
== END 2023-09-07 21:58 | disposition home or self-care (01) ==
LOC: ED 18:24
PROVIDERS: Physician Assistant Medical
DX: N39.0 Urinary tract infection, site not specified (principal); G89.29 Other chronic pain; K21.9 Gastro-esophageal reflux disease without esophagitis; F41.9 Anxiety disorder, unspecified; F32.A Depression, unspecified; Z86.73 Personal history of transient ischemic attack (TIA), and cerebral infarction without residual deficits; I25.2 Old myocardial infarction; E78.00 Pure hypercholesterolemia, unspecified; J44.9 Chronic obstructive pulmonary disease, unspecified; Z90.49 Acquired absence of other specified parts of digestive tract; Z90.710 Acquired absence of both cervix and uterus; Z90.89 Acquired absence of other organs; Z98.890 Other specified postprocedural states; F17.200 Nicotine dependence, unspecified, uncomplicated

== ENCOUNTER 2024-03-26 00:26 | Emergency (ER) | payer OTHER ==
[~2024-03-26] VITALS: Ht 170.1 cm; Wt 81.6 kg
[~2024-03-26 00:26] MED LIST changes: +CLONAZEPAM1 MG PO; +DULOXETINE HCL30 MG PO; +DULOXETINE HCL60 MG PO; +MEMANTINE HCL10 MG PO; +RIVASTIGMINE1 EAC2 T; +SEPTDS PO
[2024-03-26 01:17] LABS: BASO # 0.1 10*3/uL (0.0-0.1); BASO % 0.5 % (0.0-1.0); EOS # 0.1 10*3/uL (0.0-0.4); EOS % 0.8 % (1.0-4.0); HEMATOCRIT 31.2 % (37.0-47.0); LYMPH # 2.9 10*3/uL (1.3-4.4); MEAN CELL VOLUME 76.1 fl (81.0-99.0); MEAN CORPUSCULAR HGB 22.9 pg (27.0-31.0); MEAN CORPUSCULAR HGB CONC 30.1 g/dl (33.0-37.0); MEAN PLATELET VOLUME 8.8 fl (9.6-12.3); MONO # 1.4 10*3/uL (0.1-1.0); MONO % 10.7 % (3.0-9.0); NEUT # 8.3 10*3/uL (2.3-7.9); NEUT % 64.7 % (47.0-73.0); PLATELET COUNT AUTOMATED 414 10*3/uL (130-400); WHITE BLOOD COUNT 12.8 10*3/uL (4.8-10.8)
[2024-03-26 01:38] LABS: POTASSIUM 4.3 mmol/L (3.4-5.1); TOTAL PROTEIN 7.2 gm/dL (6.0-8.0)
[2024-03-26] MEDS ORDERED: Ropinirole Hydrochloride 1 MG TAB PO ONE (02:05)
[2024-03-26 02:10] LABS: BILIRUBIN Negative (Negative); BLOOD Negative (Negative); CLARITY Clear (Clear); COLOR Yellow (Yellow); GLUCOSE Negative (Negative); KETONE Negative (Negative); LEUKO ESTERASE Trace (Negative); NITRITE Negative (Negative); PH 6.5 (4.5-8.0); UROBILINOGEN 0.2 E.U./dl (0.0-1.0)
[2024-03-26] MEDS ORDERED: fentaNYL CITRATE 100 MCG/2 ML VIAL IV ONE (02:45)
[2024-03-26 06:23] VITALS: BP 138/704
== END 2024-03-26 06:40 | disposition home or self-care (01) ==
LOC: ED 00:26
PROVIDERS: Emergency Medicine
DX: C34.92 Malignant neoplasm of unspecified part of left bronchus or lung (principal); K21.9 Gastro-esophageal reflux disease without esophagitis; F41.9 Anxiety disorder, unspecified; F32.A Depression, unspecified; Z86.73 Personal history of transient ischemic attack (TIA), and cerebral infarction without residual deficits; I25.2 Old myocardial infarction; E78.00 Pure hypercholesterolemia, unspecified; J44.9 Chronic obstructive pulmonary disease, unspecified; F17.200 Nicotine dependence, unspecified, uncomplicated; Z90.49 Acquired absence of other specified parts of digestive tract; Z90.710 Acquired absence of both cervix and uterus; Z98.890 Other specified postprocedural states; Z90.89 Acquired absence of other organs

== ENCOUNTER 2024-05-18 00:31 | Emergency (ER) | payer MEDICARE, OTHER ==
[~2024-05-18] VITALS: Ht 170.1 cm; Wt 86.2 kg
[2024-05-18 00:41] VITALS: BP 131/62
[2024-05-18 00:56] LABS: BASO % 0.5 % (0.0-1.0); EOS # 0.2 10*3/uL (0.0-0.4); EOS % 2.7 % (1.0-4.0); HEMATOCRIT 28.5 % (37.0-47.0); LYMPH # 2.5 10*3/uL (1.3-4.4); LYMPH % 30.9 % (27.0-41.0); MEAN CORPUSCULAR HGB 21.8 pg (27.0-31.0); MEAN CORPUSCULAR HGB CONC 29.1 g/dl (33.0-37.0); MEAN PLATELET VOLUME 8.8 fl (9.6-12.3); MONO % 12.1 % (3.0-9.0); NEUT # 4.3 10*3/uL (2.3-7.9); NEUT % 53.6 % (47.0-73.0); PLATELET COUNT AUTOMATED 402 10*3/uL (130-400); RED CELL DISTRI WIDTH 17.6 % (0-14.5); WHITE BLOOD COUNT 8.1 10*3/uL (4.8-10.8)
[2024-05-18] MEDS ORDERED: AZITHROMYCIN 250 ML IV ONE (01:00)
[2024-05-18] MEDS ORDERED: Ceftriaxone Sodium 1 GM/10 ML SYR IV ONE (01:05)
[2024-05-18 01:17] LABS: POTASSIUM 4.8 mmol/L (3.4-5.1); TOTAL PROTEIN 7.1 gm/dL (6.0-8.0)
[2024-05-18] MEDS ORDERED: Ropinirole Hydrochloride 1 MG TAB PO ONE (01:20)
[2024-05-18] MEDS ORDERED: Albuterol Sulf/Ipratropium 3 ML VIAL NEB ONE (01:20)
[2024-05-18] MEDS ORDERED: methylPREDNISolone sod succ 125 MG VIAL IV ONE (01:25)
[2024-05-18] MEDS ORDERED: FUROSEMIDE 20 MG/2 ML VIAL IV ONE (02:05)
== END 2024-05-18 03:24 | disposition home or self-care (01) ==
LOC: ED 00:31 → EDHOLD 02:47 → ED 02:47
DX: I50.9 Heart failure, unspecified (principal); Z20.822 Contact with and (suspected) exposure to COVID-19; E03.9 Hypothyroidism, unspecified; E11.65 Type 2 diabetes mellitus with hyperglycemia; J44.9 Chronic obstructive pulmonary disease, unspecified; F41.9 Anxiety disorder, unspecified; F32.A Depression, unspecified; D63.1 Anemia in chronic kidney disease; K21.9 Gastro-esophageal reflux disease without esophagitis; E78.5 Hyperlipidemia, unspecified; E87.6 Hypokalemia; G43.909 Migraine, unspecified, not intractable, without status migrainosus; E87.1 Hypo-osmolality and hyponatremia; I25.2 Old myocardial infarction; E78.00 Pure hypercholesterolemia, unspecified; F17.200 Nicotine dependence, unspecified, uncomplicated; Z90.710 Acquired absence of both cervix and uterus; Z90.49 Acquired absence of other specified parts of digestive tract; Z90.89 Acquired absence of other organs; Z98.890 Other specified postprocedural states; Z86.73 Personal history of transient ischemic attack (TIA), and cerebral infarction without residual deficits